=== PATIENT | female | born 1995 | race Caucasian/White ===

== ENCOUNTER 2020-11-14 12:59 | Outpatient (REF) | payer OTHER, SELFPAY | END 2020-11-14 13:00 | disposition home or self-care (01) | LOC: HO.LAB 12:59 | PROVIDERS: PCP Internal Medicine; Visit Provider Internal Medicine | DX: Z20.822 Contact with and (suspected) exposure to COVID-19 (principal) | CPT/HCPCS: 36415; C9803; U0003 ==

== ENCOUNTER 2022-12-30 15:34 | Outpatient (REF) | payer BC, SELFPAY ==
[2022-12-31 15:14] LABS: Influenza A PCR NEGATIVE (Negative); Influenza B PCR NEGATIVE (Negative); Resp Syncy Virus RNA Qual PCR NEGATIVE (Negative); SARS COV2 PCR INHOUSE NEGATIVE (Negative)
== END 2022-12-30 15:35 | disposition home or self-care (01) ==
LOC: HO.LAB 15:34
PROVIDERS: Visit Provider Nurse Practitioner Family
DX: Z20.822 Contact with and (suspected) exposure to COVID-19 (principal); B34.9 Viral infection, unspecified
CPT/HCPCS: 0241U